=== PATIENT | male | born 1975 | race Caucasian/White ===

== ENCOUNTER 2017-09-09 10:53 | Day surgery (SDC) | payer BC ==
[2017-09-09] VITALS (9 sets, daily range): BP systolic 178–204; BP diastolic 87–109
[~2017-09-09] VITALS: Ht 180.3 cm; Wt 63.6 kg
[~2017-09-09 10:53] MED LIST: CRESTOR10 MG PO; HUMALOG JU100 UNIT/1 SC; LANTUS 3 M100 UNITS1 SC; NEURONTIN300 MG PO; RESTORIL30 MG PO; TOPROL XL50 MG PO; ZESTRIL20 MG PO
[2017-09-09 11:31] LABS: HEMATOCRIT 31.3 % (38.0-50.0); HEMOGLOBIN 10.5 G/DL (12.5-16.6); MCV 93.7 FL (86-99)
[2017-09-09 11:53] LABS: CHLORIDE 96 MEQ/L (99-109); CREATININE 7.5 MG/DL (0.6-1.3); GFR ESTIMATE (CALCULATED) 8 mL/min/ (58.99-99999); GLUCOSE 237 mg/dL (70-99); POTASSIUM 3.7 MEQ/L (3.7-5.4); SODIUM 136 MEQ/L (136-147); UREA NITROGEN (BUN) 50 mg/dL (9-23)
== END 2017-09-09 18:20 | disposition home or self-care (01) ==
LOC: SDC 10:53
PROVIDERS: Ophthalmology
DX: E10.3591 Type 1 diabetes mellitus with proliferative diabetic retinopathy without macular edema, right eye (principal); H43.11 Vitreous hemorrhage, right eye; I12.9 Hypertensive chronic kidney disease with stage 1 through stage 4 chronic kidney disease, or unspecified chronic kidney disease; E10.22 Type 1 diabetes mellitus with diabetic chronic kidney disease; N18.4 Chronic kidney disease, stage 4 (severe); F17.200 Nicotine dependence, unspecified, uncomplicated
CPT/HCPCS: 80048; 82948; 85014; 85018; J0360; J0690; J0713; J1170; J2250; J2795

== ENCOUNTER 2017-10-07 11:35 | Day surgery (SDC) | payer BC ==
[~2017-10-07] VITALS: Ht 180.3 cm; Wt 63.6 kg
[2017-10-07] MEDS ORDERED: AMLODIPINE BES2.5 MG PO (12:24)
[2017-10-07 12:26] VITALS: BP 193/92
[2017-10-07 12:51] LABS: HEMATOCRIT 27.7 % (38.0-50.0); HEMOGLOBIN 9.1 G/DL (12.5-16.6); MCH 30.4 PG (29.0-34.0); MCHC 32.9 G/DL (30.0-36.0); MCV 92.6 FL (86-99); PLATELET COUNT 150 K/uL (156-360); RBC DIS.WIDTH-CV 12.2 % (11.8-14.6); RBC DIS.WIDTH-SD 40.9 % (39-53); RED BLOOD COUNT 2.99 M/uL (4.00-5.50); WHITE BLOOD COUNT 8.4 K/uL (4.1-10.2)
[2017-10-07 13:15] LABS: ALKALINE PHOSPHATASE 67 IU/L (3-129); ALT (GPT) 9 IU/L (3-49); AST (GOT) 11 IU/L (2-34); CHLORIDE 99 MEQ/L (99-109); CREATININE 8.8 MG/DL (0.6-1.3); GFR ESTIMATE (CALCULATED) 7 mL/min/ (58.99-99999); GLUCOSE 272 mg/dL (70-99); POTASSIUM 4.2 MEQ/L (3.7-5.4); SODIUM 139 MEQ/L (136-147); TOTAL BILIRUBIN 0.4 MG/DL (0.0-1.0); TOTAL PROTEIN 5.6 G/DL (6.4-8.3); UREA NITROGEN (BUN) 66 mg/dL (9-23)
[2017-10-07 16:05] VITALS: BP 184/82
[2017-10-07 16:51] VITALS: BP 213/98
== END 2017-10-07 16:48 | disposition home or self-care (01) ==
LOC: SDC 11:35
PROVIDERS: Ophthalmology
DX: E10.3532 Type 1 diabetes mellitus with proliferative diabetic retinopathy with traction retinal detachment not involving the macula, left eye (principal); H43.12 Vitreous hemorrhage, left eye; E10.22 Type 1 diabetes mellitus with diabetic chronic kidney disease; I12.0 Hypertensive chronic kidney disease with stage 5 chronic kidney disease or end stage renal disease; N18.6 End stage renal disease; Z99.2 Dependence on renal dialysis; Z79.4 Long term (current) use of insulin; E78.5 Hyperlipidemia, unspecified
CPT/HCPCS: 80053; 82948; 85027; 87641; J0690; J0713; J2795; J3010

== ENCOUNTER 2017-11-04 05:37 | Day surgery (SDC) | payer BC ==
[~2017-11-04] VITALS: Ht 180.3 cm; Wt 63.0 kg
[~2017-11-04 05:37] MED LIST changes: +AMLODIPINE BES2.5 MG PO; +HUMALOG100 UNIT/2 SC
[2017-11-04 06:34] VITALS: BP 200/90
[2017-11-04 09:30] VITALS: BP 166/78
[2017-11-04 10:19] VITALS: BP 194/90
== END 2017-11-04 10:21 | disposition home or self-care (01) ==
LOC: SDC 05:37
PROVIDERS: Ophthalmology
DX: E10.3592 Type 1 diabetes mellitus with proliferative diabetic retinopathy without macular edema, left eye (principal); H43.12 Vitreous hemorrhage, left eye; E10.22 Type 1 diabetes mellitus with diabetic chronic kidney disease; I12.0 Hypertensive chronic kidney disease with stage 5 chronic kidney disease or end stage renal disease; N18.6 End stage renal disease; Z99.2 Dependence on renal dialysis; E78.5 Hyperlipidemia, unspecified; Z79.4 Long term (current) use of insulin; F17.200 Nicotine dependence, unspecified, uncomplicated
CPT/HCPCS: 82948; 87641; J0690; J0713; J2250; J2795; J3010; J3300